=== PATIENT | female | born 1965 | race Caucasian/White ===

== ENCOUNTER 2017-11-20 11:26 | Emergency (ER) | payer BC, OTHER ==
[2017-11-20 11:38] VITALS: BP 144/86
--- NOTE | 2017-11-20 12:07 | RAD ---
Indication: Right rib pain. 3 views of the right ribs are reviewed. No evidence of fracture is noted. Dual energy PA view of the chest demonstrates no pneumothorax. IMPRESSION: No fracture of the right ribs is noted. No pneumothorax is noted.
--- NOTE | 2017-11-20 12:27 | UC ---
General HPI - HPI Summary HPI Summary: Patient presents to urgent care with pain in her right distal lateral ribs. Patient states yesterday while at work she was leaning into a cart holding also objects. Patient states she felt a popping pain over right ribs. Patient states pain with movement. Pain with deep breath. Patient has been short of breath. Patient denies any bruising. Patient denies any nausea vomiting. Patient has not taken anything for pain. Patient has not applied any ice. Patient states the pain is slightly improved if she holds pressure on the area. Patient without any blood thinners. Patient is right-handed. Patient worked this morning from 6 AM to noon. Patient came to get checked out because of the discomfort. Patient's medications reviewed this visit. - History of Current Complaint Chief Complaint: UCChestPain Stated Complaint: RIGHT SIDE RIB PAIN Time Seen by Provider: 11/20/17 12:08 Hx Obtained From: Patient Hx Last Menstrual Period: 09/25/12 Onset/Duration: Sudden Onset Onset Severity: Moderate Current Severity: Moderate Pain Intensity: 6 - Allergy/Home Medications Allergies/Adverse Reactions: Allergies Allergy/AdvReac Type Severity Reaction Status Date / Time No Known Allergies Allergy Verified 11/20/17 11:35 Home Medications: Home Medications NK [No Home Medications Reported] 11/20/17 [History Confirmed 11/20/17] PMH/Surg Hx/FS Hx/Imm Hx Previously Healthy: Yes - Surgical History Surgical History: Yes Surgery Procedure, Year, and Place: Complete Hysterectomy, [place] - Family History Known Family History: Positive: None Family History: denies history of cardio vascular ailments in family lineage - Social History Occupation: Employed Full-time Lives: With Family Alcohol Use: Occasionally Substance Use Type: None Smoking Status (MU): Heavy Every Day Tobacco Smoker Type: Cigarettes Amount Used/How Often: 3/4 PPD Length of Time of Smoking/Using Tobacco: Since Age 15 Have You Smoked in the Last Year: Yes Household Exposure Type: Cigarettes - Immunization History Most Recent Influenza Vaccination: Not the 2016/2016 Season Review of Systems Constitutional: Negative Skin: Negative Musculoskeletal: Other: - right anterior chest wall All Other Systems Reviewed And Are Negative: Yes Physical Exam - Summary Physical Exam Summary: Vital Signs Reviewed: Yes A+Ox3, no distress Eyes: Conjunctiva Clear, MAKENZIE. EOM intact and full ENT: Hearing grossly normal TM x 2 clear, mmoist, uvula midline, no exudate, no erythema Neck: Positive: Supple Respiratory: Positive: No respiratory distress, No accessory muscle use + CTA throughout no w/r Cardiovascular: RRR nl s1, s2 no m/r CBT <2 sec Pt holding right anterior, inferior ribs under right breast for support. No crepitus abd soft + BS nt/nd no guarding, no distension Musculoskeletal Exam: STEINBERG x 4 without difficulty Strength Intact, ROM Intact Neurological: Positive: Alert, + sensation throughout Psychological: Positive: Normal Response To Family Skin: Positive: no rash, no ecchymosis, no abraison Triage Information Reviewed: Yes Vital Signs: Initial Vital Signs Temp 97.9 F 11/20/17 11:33 Pulse 77 11/20/17 11:33 Resp 17 11/20/17 11:33 BP 144/86 11/20/17 11:33 Pulse Ox 100 11/20/17 11:33 Diagnostics - Radiology No standard instances Xray Interpretation: No Acute Changes Radiology Interpretation Completed By: Radiologist - Patient Name: JAYSHREE SHIN Medical Record#: [id number] Ordering Physician: Alvina Mosqueda MD Acct.#: [id number] : 1965 Age: 52 Sex: F Location: [facility] Exam Date: 11/20/17 1144 ADM Status: REG ER Order Information: RIBS RT UNI W/PA CH MIN 3 VWS Accession Number: [id number] CPT: 37107 Indication: Right rib pain. 3 views of the right ribs are reviewed. No evidence of fracture is noted. Dual energy PA view of the chest demonstrates no pneumothorax. IMPRESSION: No fracture of the right ribs is noted. No pneumothorax is noted. <Electronically signed by Hoda Hernandez MD in OV> 1204 Dictated By: Hoda Hernandez MD Dictated Date/Time: 11/20/17 1204 Transcribed Date/Time: 11/20/17 1159 Copy to: CC:Alvina Mosqueda MD; [facility] - [facility] Imaging - [facility] Imaging - [facility] [id number] [place] [id number] ph ([phone]) ph ([phone]) ph ([phone]) This report is only to be considered final once signed by the Provider(s) as displayed in the "< Electronically Signed by >" field (s). Absence of a signature indicates the report is in a draft status and still needs to be finalized. In the event this document was created by someone other than the signing Provider, the individual initiating the document will be listed in the "Entered by:" or "Dictated by:" patricia. 1 of 1 Re-Evaluation - Re-Evaluation First Eval Comment: Review chest x-ray with patient. No pneumo, no fracture. Patient declined analgesia. Patient placed Rodney wrap around ribs for support. Encourage deep Slow breaths several times now. Motrin/pain. Ice. Patient declined work note. Strict return precautions discussed with patient. Encourage decreasing her smoking. Patient comfortable in agreement with plan. Course/Dx - Course Course Of Treatment: Patient presents with right anterior inferior rib pain. Patient states this started yesterday when she is leaning into a cart at work and felt a popping sound. Patient states she isn't taking anything for pain upon anything. Patient's discomfort is improved when she holds pressure. On exam, patient without crepitus. No ecchymosis. Secretion. Patient with good breath sounds. Patient declined analgesia urgent care for which of the chest x- ray. As noted patient's blood pressure was elevated. Recommend patient follow up with PCP. Patient was and discomfort states this exam which could explain it. Patient also does smoke however. Patient comfortable in agreement - Differential Dx - Multi-Symptom Provider Diagnoses: right anterior rib contusion Discharge - Sign-Out/Discharge Documenting (check all that apply): Patient Departure - Discharge Plan Condition: Stable Disposition: HOME Patient Education Materials: Rib Contusion (ED) Referrals: Tea Puga PA [Primary Care Provider] - Additional Instructions: - Wear Rodney wrap for comfort and support - Okay to alternate ibuprofen (Motrin, Advil) 600 mg and Tylenol 1000mg every 3 hours for pain and discomfort. Take with food. Do not take for more 3-4 days. - It is okay to apply ice (wrapped in a towel) 20 minutes at a time, 2-3 times a day. - Concentrate on taking slow, deep breaths several times a day. This will help with preventing pneumonia. It's recommended to hold a pillow and blanket along the ribs to help support them. - To decrease cigarettes smoking - Contact her doctor to schedule follow-up appointment. Contact her doctor, return here, or go to emergency department with any questions or concerns. Avoid further trauma to the area. - Billing Disposition and Condition Condition: STABLE Disposition: Home
== END 2017-11-20 12:42 | disposition home or self-care (01) ==
LOC: UCCORT 11:26
DX: S20.211A Contusion of right front wall of thorax, initial encounter (principal); X50.0XXA Overexertion from strenuous movement or load, initial encounter; Y93.89 Activity, other specified; Y92.89 Other specified places as the place of occurrence of the external cause; Y99.0 Civilian activity done for income or pay; F17.210 Nicotine dependence, cigarettes, uncomplicated
CPT/HCPCS: 99212; G0463